=== PATIENT | female | born 1960 | race Caucasian/White ===

== ENCOUNTER 2018-03-11 15:53 | Emergency (ER) | payer OTHER ==
[~2018-03-11] VITALS: Ht 167.6 cm; Wt 102.1 kg
[2018-03-11] MEDS ORDERED: HYDROCODONE/APAP 10MG-325MG TAB PO ONE (17:15)
--- NOTE | 2018-03-11 19:08 | Diagnostic Imaging Report ---
HIP RIGHT 2-3 VW (+/- PELVIS) - 3 views HISTORY: Pain. Proximal femur. COMPARISON: None available. FINDINGS: Bones: Bilateral total hip arthroplasty in good position. No evidence of loosening or infection. Soft tissues: The soft tissues appear unremarkable. IMPRESSION: Stable bilateral total hip arthroplasty. No fractures. Signed by: Dr. Trevon Bosch M.D. on 03/11/2018 7:05 PM
--- NOTE | 2018-03-11 19:11 | Diagnostic Imaging Report ---
FEMUR TWO VIEW MINIMUM RIGHT - 2 views HISTORY: Pain. Broke femur COMPARISON: None available. FINDINGS: Bones: Right total knee arthroplasty in good alignment with no evidence of loosening or infection. Right total hip arthroplasty in good alignment with no evidence of loosening or infection. Osseous alignment is within normal limits. Small suprapatellar joint effusion. Soft tissues: The soft tissues appear unremarkable. IMPRESSION: 1. Right total hip and total knee arthroplasty in good alignment. 2. No fractures. 3. Small suprapatellar joint effusion. Signed by: Dr. Trevon Bosch M.D. on 03/11/2018 7:07 PM
== END 2018-03-11 21:00 | disposition home or self-care (01) ==
LOC: ER 15:53
DX: S80.01XA Contusion of right knee, initial encounter (principal); W01.0XXA Fall on same level from slipping, tripping and stumbling without subsequent striking against object, initial encounter; Y92.007 Garden or yard of unspecified non-institutional (private) residence as the place of occurrence of the external cause; I10 Essential (primary) hypertension; G40.909 Epilepsy, unspecified, not intractable, without status epilepticus; Z96.643 Presence of artificial hip joint, bilateral; Z96.653 Presence of artificial knee joint, bilateral